=== PATIENT | female | born 1990 | race African-American/Black ===

== ENCOUNTER → 2017-01-14 | Outpatient (CLI) | payer OTHER ==
[2017-01-14 11:55] LABS: MEAN CORPUSCULAR HEMOGLOBIN 27.1 pg (27.0-33.0); MEAN CORPUSCULAR VOLUME 84.6 fl (80.0-96.0); PLATELET COUNT, AUTOMATED 290 10^3/uL (150-450); RED CELL DISTRIBUTION WIDTH 15.3 % (11.5-14.5); WHITE BLOOD COUNT 8.9 10^3/uL (4.0-10.0)
== END ==
LOC: M LAB 09:58
PROVIDERS: ATTEND Obstetrics & Gynecology
DX: Z34.82 Encounter for supervision of other normal pregnancy, second trimester (principal); Z3A.00 Weeks of gestation of pregnancy not specified

== ENCOUNTER → 2017-01-21 | Outpatient (CLI) | payer OTHER ==
--- NOTE | 2017-01-21 11:15 | REP ---
Clinical: Anatomical evaluation. Comparison: 12/19/2016 . Findings: Examination demonstrates a single live intrauterine in breech presentation. motion is identified by technologist. Placenta is noted anteriorly and grade one without evidence for placenta previa or abruption. Amniotic fluid volume is normal. Cervix measures 4.5 cm in length and appears closed. No evidence for nuchal cord. Gestational age by LMP 24 weeks 2 days with [facility] 05/11/2017 . Gestational age by current measurements 25 weeks 2 days with [facility] 05/04/2017 . FHR equals 144 beats per minute. Estimated weight 799 grams ( 75th percentile). Anatomical assessment demonstrates normal structures including cranium, choroid plexus, cavum, cerebellum/posterior fossa, facial features, lungs, four-chamber heart/ventricular outflow tracts, diaphragm, stomach, cord insertion/three-vessel cord, kidneys/bladder, and extremities. Impression: Single live intrauterine in breech presentation demonstrating appropriate interval growth. Evaluation of the spine is again limited due to lie. Remainder of the anatomical assessment is complete and normal. Signed by Mata Terrell MD 01/21/2017 11:07 A
== END ==
LOC: M RAD 09:54
PROVIDERS: ATTEND Obstetrics & Gynecology
DX: Z34.80 Encounter for supervision of other normal pregnancy, unspecified trimester (principal)

== ENCOUNTER → 2017-02-07 | Outpatient (CLI) | payer OTHER ==
--- NOTE | 2017-02-07 12:45 | REP ---
OB ULTRASOUND: Real-time sonographic evaluation of gravid uterus performed. There is a single living intrauterine gestation. The estimated gestational age is 26 weeks 5 days, EDC 05/11/2017. Today's measurements indicate appropriate growth. BPD 69 mm = 27 weeks 4 days, 68th percentile HC 244 mm = 26 weeks 3 days, 45th percentile AC 221 mm = 26 weeks 4 days, 46th percentile Femur length 51 mm = 27 weeks 3 days, 65th percentile HC/AC ratio 1.11, within normal range. Estimated weight 996 grams, 47th percentile. heart rate 139 beats per minute. SEEN/GROSSLY UNREMARKABLE Lateral ventricles Yes Posterior fossa Yes Upper lip No Four-chamber heart No LVOT No RVOT No Stomach Yes Cord insertion No Three vessel cord No Kidneys Yes Bladder Yes Spine Yes position vertex. Placenta anterior and grade 1 with no previa or abruption. Amniotic fluid within normal limits. Cervix is closed and measures 3.7 cm in length. Signed by Kin Orellana MD 02/07/2017 04:59 P
== END ==
LOC: M RAD 10:19
PROVIDERS: ATTEND Obstetrics & Gynecology
DX: Z34.82 Encounter for supervision of other normal pregnancy, second trimester (principal)

== ENCOUNTER → 2017-02-27 | Outpatient (REF) | payer OTHER ==
[2017-02-27 15:16] LABS: CHLAMYDIA DNA AMPLIFICATION NEGATIVE (NEGATIVE); GC DNA AMPLIFICATION NEGATIVE (NEGATIVE)
== END ==
LOC: M LAB REF 12:52
DX: Z34.82 Encounter for supervision of other normal pregnancy, second trimester (principal)

== ENCOUNTER → 2017-03-24 | Outpatient (CLI) | payer OTHER | LOC: M SMT 09:33 | DX: Z34.83 Encounter for supervision of other normal pregnancy, third trimester (principal) | CPT/HCPCS: 86803 ==

== ENCOUNTER → 2017-04-14 | Outpatient (REF) | payer OTHER | LOC: M LAB REF 13:09 | DX: Z34.83 Encounter for supervision of other normal pregnancy, third trimester (principal) | CPT/HCPCS: 87081 ==

== ENCOUNTER 2017-05-02 05:00 | Inpatient (IN) | payer OTHER ==
[2017-05-02] MEDS: LACTATED RINGER'S 1000 ML IV (06:03)
[2017-05-02 06:05] LABS: HEMATOCRIT 41.5 % (36.0-47.0); HEMOGLOBIN 13.8 g/dl (12.0-16.0); MEAN CORPUSCULAR HEMOGLOBIN 28.7 pg (27.0-33.0); MEAN CORPUSCULAR HGB CONC 33.3 g/dl (32.0-36.5); MEAN CORPUSCULAR VOLUME 86.3 fl (80.0-96.0); PLATELET COUNT, AUTOMATED 259 10^3/uL (150-450); RED BLOOD COUNT 4.81 10^6/uL (4.00-5.40); RED CELL DISTRIBUTION WIDTH 15.8 % (11.5-14.5); WHITE BLOOD COUNT 9.1 10^3/uL (4.0-10.0)
[2017-05-02] MEDS ORDERED: FENTANYL 2MCG/ML ROPIVACAINE 0.2% IN 0.9% NACL 200ML IVBAG As Ordered (06:17)
[2017-05-02] MEDS ORDERED: ePHEDrine SULFATE 25 MG/5 ML(5MG/ML) SYRINGE IV (07:30)
[2017-05-02] MEDS ORDERED: EPIDURAL/PCA KEYS XX (07:30)
[2017-05-02] MEDS ORDERED: REFRIGERATOR IV KEYS XX (07:30)
[2017-05-02] MEDS ORDERED: LACTATED RINGER'S 1000 ML IV (07:30)
[2017-05-02] MEDS ORDERED: ONDANSETRON 4MG/2ML VIAL (J2405) IV (07:30)
[2017-05-02] MEDS ORDERED: EPIDURAL COMMENT XX (07:30)
[2017-05-02] MEDS ORDERED: NALOXONE INJ 0.4 MG/1 ML VIAL (J2310) IV (07:30)
[2017-05-02] MEDS ORDERED: FENTANYL/ROPIVACAINE/NACL BAG 200 ML EPIDURAL (07:30)
[2017-05-02] MEDS ORDERED: diphenhydrAMINE INJ 50MG/ML VIAL (J1200) IV (07:30)
[2017-05-02] MEDS ORDERED: OXYTOCIN 30 UNITS IN 0.9% NaCl 500ML IV BAG (J2590) As Ordered (08:02)
[2017-05-02] MEDS: OXYTOCIN DRIP 30 UNITS in APPROPRIATE DILUENT 1 EA IV ×2 (08:05→14:14)
[2017-05-02] MEDS: LR 1,000 ML IV (08:05)
[2017-05-02] MEDS ORDERED: PROMETHAZINE 25 MG TAB PO (12:00)
[2017-05-02] MEDS ORDERED: ANUSOL HC CREAM 30GM TOP (12:00)
[2017-05-02] MEDS ORDERED: DIBUCAINE 1% OINTMENT 30GM TOP (12:00)
[2017-05-02] MEDS ORDERED: METHYLERGONOVINE MALEATE 0.2 MG TAB PO (12:00)
[2017-05-02 12:39] LABS: CORD GAS ABE V -0.6; CORD GAS HCO3 V 26.5 MEQ/L; CORD GAS O2 SAT V 66.3 %; CORD GAS PCO2 V 52.8 mmHg; CORD GAS PH V 7.319 UNITS; CORD GAS PO2 V 28.2 mmHg; CORD GAS SBC V 23.2 MEQ/L; CORD GAS TCO2 V 28.2 MEQ/L
[2017-05-02] MEDS: PRENATAL VITAMINS CHEWABLE TABLET PO ×2 (14:14→14:42)
[2017-05-02] MEDS: IBUPROFEN 800 MG TAB PO ×2 (14:43→21:55)
[2017-05-02] MEDS: ACETAMINOPHEN 500 MG TAB PO (17:52)
[2017-05-02] MEDS: valACYclovir HCL 500 MG TAB PO (17:53)
[2017-05-03] MEDS: IBUPROFEN 800 MG TAB PO ×3 (05:51→22:17)
[2017-05-03] MEDS: valACYclovir HCL 500 MG TAB PO ×2 (09:21→20:19)
[2017-05-03] MEDS: PRENATAL VITAMINS CHEWABLE TABLET PO (09:21)
[2017-05-03] MEDS: ACETAMINOPHEN 500 MG TAB PO ×2 (09:22→16:07)
[2017-05-03] MEDS: DOCUSATE SODIUM 100 MG CAP PO (20:19)
[2017-05-03] MEDS: MOM 30ML SUSPENSION UDC PO (20:19)
[2017-05-04] MEDS: IBUPROFEN 800 MG TAB PO (05:28)
[2017-05-04] MEDS: ACETAMINOPHEN 500 MG TAB PO (08:39)
[2017-05-04] MEDS: valACYclovir HCL 500 MG TAB PO (08:39)
[2017-05-04] MEDS: PRENATAL VITAMINS CHEWABLE TABLET PO (08:39)
[2017-05-04] MEDS: RHOGAM 300 MCG (1500 IU) INJ (J2790) IM (09:12)
[2017-05-04] MEDS: MEASLES,MUMPS,RUBELLA VACCINE INJ (MMR-II) (90707) SC (09:12)
== END 2017-05-04 13:38 | disposition home or self-care (01) | DRG 560 ==
LOC: M LDO 05:00 → M LDI 05:19 → M OBS 14:05
PROVIDERS: Obstetrics & Gynecology
PROC: 10E0XZZ Delivery of Products of Conception, External Approach (ICD-10-PCS; principal; 2017-05-02)
PROC: 0HQ9XZZ Repair Perineum Skin, External Approach (ICD-10-PCS; 2017-05-02)
DX: O69.81X0 Labor and delivery complicated by cord around neck, without compression, not applicable or unspecified (principal); Z37.0 Single live birth; Z3A.38 38 weeks gestation of pregnancy; O70.0 First degree perineal laceration during delivery

== ENCOUNTER → 2018-02-19 | Outpatient (REF) | payer OTHER ==
[~2018-02-19] MED LIST: FERR325T3 PO; IBUP-1114 PO; MAPA500T17 PO; PRENTAB9 PO; VALT500T PO
== END ==
LOC: M LAB REF 17:06
PROVIDERS: ATTEND Obstetrics & Gynecology
DX: Z12.4 Encounter for screening for malignant neoplasm of cervix (principal)